=== PATIENT | male | born 1960 | race Caucasian/White ===

== ENCOUNTER 2016-12-02 09:21 | Emergency (ER) | payer BC ==
[~2016-12-02] VITALS: Ht 167.6 cm; Wt 68.7 kg
[~2016-12-02 09:21] MED LIST: OMEP40CA PO; ROSU5TAB PO
[2016-12-02 09:25] VITALS: TEMP 36.6; Ht 167.6 cm; Wt 68.7 kg
--- NOTE | 2016-12-02 09:54 | EMERGENCY ROOM VISIT NOTE ---
History Report prepared by Swapna: Alma Masters Under the Supervision of: Dr. Demetrius Joya D.O. First contact with patient: 09:38 Chief Complaint: CHEST PAIN Stated Complaint: HIGH BLOOD PRESSURE MODERATE CHEST PAIN Nursing Triage Summary: PT HAD SURGERY ON Nov FOR HERNIA REPAIR, SINCE THEN HAS HAD ISSUES WITH HTN , POST SURGERY F/U ON SATURDAY PT WAS PLACED ON LISINOPRIL BY PCP. PTS BP HAS BEEN RUNNING 170-180'S SYSTOLIC. LAST EVENING PT DEVELOPED CP, WAS DIAPHORETIC, PAIN RADIATING INTO LEFT ARM WITH NUMBNESS. PT VERBALIZES CP IS INTERMITTENT, AT PRESENT, CP IS 0/10. PTS FATHER FROM [place] AT 73 YEARS OLD. History of Present Illness The patient is a 56 year old male who presents to the Emergency Room with complaints of intermittent left sided chest pain that began last evening. He currently rates his discomfort as a 4/10 in severity. The patient states that the pain began last evening, and states that it worsens with movement and when he thinks about it. He additionally notes that for the last several days he has had an elevated blood pressure of 180/112, but normally runs between 130-140 /80-90. The patient states that his pain is radiating into the right side of his neck now and additionally notes palpitations. He states that three weeks ago he had a left sided hernia repair. He states that he was placed on Lisinopril three days ago for his hypertension. The patient states that prior to his surgery he had a cold for about one month. He notes a family history of heart disease, noting that his father passed at age 73, but denies any family history before age 56. The patient notes that he is an occasional alcohol drinker and caffeine drinker. He denies any tobacco use or recreational drug use. The patient notes that with his profession he uses his upper body often. Source of History: patient Onset: last evening Position: chest (left) Symptom Intensity: 4/10 Timing: intermittent Modifying Factors (Worsening): movement, other (thinking about it) Associated Symptoms: + neck pain Note: Associated Symptoms: elevated blood pressure, palpitations. Review of Systems See above for pertinent positives & negatives. A total of 10 systems reviewed and were otherwise negative. Past Medical & Surgical Medical Problems: (1) Hypertension (2) Inguinal hernia Surgical Problems: (1) S/P inguinal hernia repair Family History Diabetes mellitus FH: cancer Heart disease Hypertension Lung disease Social History Smoking Status: Never Smoker Smokeless Tobacco Use: No Alcohol Use: occasionally Drug Use: none Marital Status: Housing Status: lives with significant other Occupation Status: employed Current/Historical Medications Scheduled Acetaminophen (Acetaminophen), 1-2 TAB PO Q8H Multivitamin (Multivitamin), 1 TAB PO DAILY Rosuvastatin Calcium (Crestor), 5 MG PO LUNCH Allergies Coded Allergies: No Known Allergies (Verified , 12/02/16) Physical Exam Vital Signs Date Time Temp Pulse Resp B/P Pulse Ox O2 Delivery O2 Flow Rate FiO2 12/02/16 10:59 61 18 154/99 99 Room Air 12/02/16 10:09 98 Room Air 12/02/16 10:09 65 18 177/111 99 Room Air 12/02/16 09:25 36.6 74 18 172/102 97 Room Air Physical Exam GENERAL: Patient is well appearing and in no acute distress. HEENT: No acute trauma, normocephalic atraumatic, mucous membranes moist, no nasal congestion, no scleral icterus. NECK: No stridor, no adenopathy, no meningismus, trachea is midline. LUNGS: No dyspnea. Clear to auscultation and equal bilaterally. No wheeze, no rhonchi. HEART: Regular rate and rhythm. No murmurs, rubs, gallops appreciated. ABDOMEN: Soft, nontender, bowel sounds positive, no masses appreciated, no peritonitis. BACK: No midline tenderness, no CVA tenderness EXTREMITIES: Normal motion all extremities, no cyanosis, no edema. NEUROLOGIC: Alert and oriented, no acute motor or sensory deficits, no focal weakness, cranial nerves grossly intact. SKIN: No rash, no jaundice, no diaphoresis. Medical Decision & Procedures ER Provider Diagnostic Interpretation: X ray results and stated below per my interpretation and radiologist interpretation. Other radiology results and stated below per my review and radiologist interpretation: CHEST ONE VIEW PORTABLE HISTORY: Atypical CHEST PAIN COMPARISON: None. FINDINGS: The lungs are clear. Cardiac silhouette is normal in size. No pleural effusions. No pneumothorax. IMPRESSION: No acute process. Electronically signed by: Nathaniel Martin M.D. 12/02/2016 10:09 AM Dictated Date/Time: 12/02/2016 10:08 AM Laboratory Results 12/02/16 09:43 Red Blood Count 5.27, Mean Corpuscular Volume 79.7, Mean Corpuscular Hemoglobin 27.5, Mean Corpuscular Hemoglobin Concent 34.5, Mean Platelet Volume 10.4, Neutrophils (%) (Auto) 74.8, Lymphocytes (%) (Auto) 14.7, Monocytes (%) (Auto) 8.1, Eosinophils (%) (Auto) 2.0, Basophils (%) (Auto) 0.1, Neutrophils # (Auto) 6.67, Lymphocytes # (Auto) 1.31, Monocytes # (Auto) 0.72, Eosinophils # (Auto) 0.18, Basophils # (Auto) 0.01 12/02/16 09:43 Test 12/02/16 09:43 White Blood Count 8.92 K/uL (4.8-10.8) Red Blood Count 5.27 M/uL (4.7-6.1) Hemoglobin 14.5 g/dL (14.0-18.0) Hematocrit 42.0 % (42-52) Mean Corpuscular Volume 79.7 fL (80-100) Mean Corpuscular Hemoglobin 27.5 pg (25-34) Mean Corpuscular Hemoglobin Concent 34.5 g/dl (32-36) Platelet Count 214 K/uL (130-400) Mean Platelet Volume 10.4 fL (7.4-10.4) Neutrophils (%) (Auto) 74.8 % Lymphocytes (%) (Auto) 14.7 % Monocytes (%) (Auto) 8.1 % Eosinophils (%) (Auto) 2.0 % Basophils (%) (Auto) 0.1 % Neutrophils # (Auto) 6.67 K/uL (1.4-6.5) Lymphocytes # (Auto) 1.31 K/uL (1.2-3.4) Monocytes # (Auto) 0.72 K/uL (0.11-0.59) Eosinophils # (Auto) 0.18 K/uL (0-0.5) Basophils # (Auto) 0.01 K/uL (0-0.2) RDW Standard Deviation 38.4 fL (36.4-46.3) RDW Coefficient of Variation 13.3 % (11.5-14.5) Immature Granulocyte % (Auto) 0.3 % Immature Granulocyte # (Auto) 0.03 K/uL (0.00-0.02) Anion Gap 10.0 mmol/L (3-11) Est Creatinine Clear Calc Drug Dose 68.4 ml/min Estimated GFR () 87.1 Estimated GFR (Non- 75.2 BUN/Creatinine Ratio 14.9 (10-20) Calcium Level 8.9 mg/dl (8.5-10.1) Total Bilirubin 0.5 mg/dl (0.2-1) Direct Bilirubin < 0.1 mg/dl (0-0.2) Aspartate Amino Transf (AST/SGOT) 18 U/L (15-37) Alanine Aminotransferase (ALT/SGPT) 34 U/L (12-78) Alkaline Phosphatase 112 U/L (45-117) Troponin I < 0.015 ng/ml (0-0.045) Total Protein 7.6 gm/dl (6.4-8.2) Albumin 3.8 gm/dl (3.4-5.0) Lipase 108 U/L (73-393) Thyroid Stimulating Hormone (TSH) 1.440 uIu/ml (0.300-4.500) Free Thyroxine 1.06 ng/dl (0.80-1.60) Laboratory results as reviewed by me. Medications Administered Medications (Trade) Dose Ordered Sig/Josue Route Start Time Stop Time Status Last Admin Dose Admin Lisinopril (Zestril Tab) 10 mg NOW STAT PO 12/02/16 10:38 12/02/16 10:39 DC 12/02/16 10:42 10 MG ECG Indication: chest pain Rate (beats per minute): 66 Rhythm: normal sinus Findings: other (normal axis, normal intervals) Comparison ECG Date: no prior available ED Course 0939: The patient was evaluated in room A3. A complete history and physical exam was performed. 1038: Ordered Lisinopril 10 mg PO. 1057: I reevaluated the patient and he is resting comfortably. I discussed the exam findings with him and I discussed the treatment plan. He verbalized complete understanding and agreement. He is ready to go home. Medical Decision Differential diagnosis: Etiologies such as cardiac ischemia, aortic dissection, pulmonary embolism, pneumonia, pneumothorax, musculoskeletal, infections, pericarditis, myocarditis , esophageal rupture, gastrointestinal, as well as others were entertained. The past medical history of recently diagnosed hypertension, was started on 2.5 mg of lisinopril, he is been checking his blood pressure at home and felt that his blood pressure was actually increase discontinue the lisinopril after 3 days. He presents with a 24-hour history of intermittent chest pain that feels like electric shocks, it gets better when he moves around bed, there is no radiation. He has a family history of cardiac disease, his father in the 70s from a heart attack however there is no significant cardiac disease prior to age 56, he is a nonsmoker, occasionally drinks alcohol but every day, denies any illicit drug use. 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 The patient has a heart score of 2, he only has 2 risk factors for cardiac disease, I am not suspicious of the clinical history of this chest pain being cardiac, his EKG is normal, he is age 56 which gives him 1. his EKG is normal, his troponins are normal. He is also concerned about his elevated blood pressure it is an 170s 180s, I feel that there could be an anxiety component related to this and as he is on a very low-dose of lisinopril I have advised him to increase lisinopril to 10 mg daily and to follow-up with his primary care doctor. Impression Primary Impression: Non-cardiac chest pain Additional Impression: Hypertension Scribe Attestation The scribe's documentation has been prepared under my direction and personally reviewed by me in its entirety. I confirm that the note above accurately reflects all work, treatment, procedures, and medical decision making performed by me. Departure Information Dispostion Home / Self-Care Prescriptions Lisinopril (PRINIVIL) 10 Mg Tab 10 MG PO DAILY, #30 TAB Prov: Demetrius Joya D.O. 12/02/16 Acetaminophen (ACETAMINOPHEN) 500 Mg Tab 1-2 TAB PO Q8H for 15 Days, TAB Prov: Demetrius Joya D.O. 12/02/16 Referrals Jayant Houston D.O. (PCP) Follow-up with Dr. Houston in 1-2 weeks for medication adjustment. Forms HOME CARE DOCUMENTATION FORM, IMPORTANT VISIT INFORMATION Patient Instructions ED Chest Pain Atypical Unkn Cause, [facility] Additional Instructions Return for severe chest pain like an elephant sitting on her chest, inability to catch her breath, or passing out. Problem Qualifiers
[2016-12-02 10:03] LABS: BASO % 0.1 %; BASO ABS # 0.01 K/uL (0-0.2); COMPLETE YES; IG% 0.3 %; LYMPH % 14.7 %; LYMPH ABS # 1.31 K/uL (1.2-3.4); MEAN CELL VOLUME 79.7 fL (80-100); MEAN CORPUSCULAR HEMOGLOBIN 27.5 pg (25-34); MEAN CORPUSCULAR HGB CONC 34.5 g/dl (32-36); MEAN PLATELET VOLUME 10.4 fL (7.4-10.4); MONO % 8.1 %; NEUT % 74.8 %; PLATELET COUNT 214 K/uL (130-400); RED BLOOD COUNT 5.27 M/uL (4.7-6.1); WHITE BLOOD COUNT 8.92 K/uL (4.8-10.8)
[2016-12-02 10:09] VITALS: O2SAT 98
--- NOTE | 2016-12-02 10:11 | DIAGNOSTIC IMAGING REPORT ---
CHEST ONE VIEW PORTABLE HISTORY: Atypical CHEST PAIN COMPARISON: None. FINDINGS: The lungs are clear. Cardiac silhouette is normal in size. No pleural effusions. No pneumothorax. IMPRESSION: No acute process. Electronically signed by: Nathaniel Martin M.D. 12/02/2016 10:09 AM Dictated Date/Time: 12/02/2016 10:08 AM
[2016-12-02 10:27] LABS: ALT/SGPT 34 U/L (12-78); BLOOD UREA NITROGEN 16 mg/dl (7-18); BUN/CREATININE RATIO 14.9 (10-20); CALCIUM 8.9 mg/dl (8.5-10.1); CARBON DIOXIDE 27 mmol/L (21-32); CHLORIDE 106 mmol/L (98-107); GLUCOSE 99 mg/dl (70-99); POTASSIUM 3.5 mmol/L (3.5-5.1); SODIUM 143 mmol/L (136-145)
[2016-12-02] MEDS ORDERED: MULT-506 PO (10:27)
[2016-12-02 10:38] LABS: ALKALINE PHOSPHATASE 112 U/L (45-117); AST/SGOT 18 U/L (15-37)
[2016-12-02] MEDS ORDERED: LISINOPRIL 5 MG TAB PO STA (10:38)
[2016-12-02] MEDS ORDERED: ACET500T57 PO (10:42)
[2016-12-02] MEDS ORDERED: LISI10TA PO (11:22)
[2016-12-02 11:27] VITALS: BP 168/106; PULSE 65; O2SAT 98
[2016-12-03] MEDS ORDERED: LISINOPRIL 10 MG TAB PO SCH (09:00)
== END 2016-12-02 11:27 | disposition home or self-care (01) ==
LOC: C.EDB 09:23 → C.EDA 11:27
DX: R07.89 Other chest pain (principal); I10 Essential (primary) hypertension; Z83.3 Family history of diabetes mellitus; Z82.49 Family history of ischemic heart disease and other diseases of the circulatory system

== ENCOUNTER 2019-02-01 01:06 | Observation (INO) ==
[2019-02-01] MEDS ORDERED: ASPIRIN 81 MG CHEW PO STA (02:05)
[2019-02-01 02:47] LABS: Basophils # (auto) 0.01 K/uL (0-0.2); Basophils % (auto) 0.1 %; Eosinophils # (auto) 0.19 K/uL (0-0.5); Eosinophils % (auto) 2.6 %; Hematocrit (blood only) 40.6 % (42-52); Hemoglobin 13.8 g/dL (14.0-18.0); Immature Granulocytes # (auto) 0.01 K/uL (0.00-0.02); Immature Granulocytes % (auto) 0.1 %; Lymphocytes # (auto) 1.05 K/uL (1.2-3.4); Lymphocytes % (auto) 14.3 %; Mean Corpuscular Volume 82.2 fL (80-100); Mean Platelet Volume 10.2 fL (7.4-10.4); Monocytes # (auto) 0.76 K/uL (0.11-0.59); Monocytes % (auto) 10.3 %; Neutrophils # (auto) 5.33 K/uL (1.4-6.5); Neutrophils % (auto) 72.6 %; Platelet Count 148 K/uL (130-400); RDW Coefficient of Variation 13.3 % (11.5-14.5); RDW Standard Deviation 40.4 fL (36.4-46.3); Red Blood Count 4.94 M/uL (4.7-6.1); White Blood Count 7.35 K/uL (4.8-10.8)
[2019-02-01 03:12] LABS: Alanine Aminotransferase 52 U/L (12-78); Albumin Level 3.2 gm/dl (3.4-5.0); Aspartate Aminotransferase 32 U/L (15-37); BUN Creatinine Ratio 23.4 (10-20); Bilirubin Direct < 0.1 mg/dl (0-0.2); Blood Urea Nitrogen 25 mg/dl (7-18); Calcium 8.4 mg/dl (8.5-10.1); Carbon Dioxide 28 mmol/L (21-32); Chloride 108 mmol/L (98-107); Est GFR (African American) 90.9; Est GFR (Non-African American) 78.4; Glucose 102 mg/dl (70-99); Potassium 3.8 mmol/L (3.5-5.1); Sodium 139 mmol/L (136-145)
[2019-02-01 03:17] LABS: Alkaline Phosphatase 102 U/L (45-117); Bilirubin,Total 0.3 mg/dl (0.2-1); Total Protein 6.9 gm/dl (6.4-8.2); Troponin I < 0.015 ng/ml (0-0.045)
--- NOTE | 2019-02-01 03:57 | History & Physical Report ---
Date of Service February 01, 2019 Assessment & Plan (1) Chest pain: (2) High cholesterol: (3) Hypertension: (4) GERD (gastroesophageal reflux disease): History of Present Illness Chief Complaint: CP Primary Care Provider: Jayant Houston, DO 58-year-old male with past medical history of hypertension, hyperlipidemia, gastroesophageal reflux disease, who comes in complaining of substernal chest pain radiating to his back that started about 2 days ago. He had a recent EGD and has had a sore throat since then. Workup in the ER so far was negative we will place him under observation have him seen by cardiology and get a 2D echo. Patient will be observation status likely be her less than 2 midnights. He does have a family history of premature acute myocardial infarctions. Assessment and Plan Substernal chest pain Hypertension Hyperlipidemia GERD Placed under observation, serial troponins, trans-thoracic echo, continue outpatient medications, monitor daily labs, cardiac evaluation. Symptoms to me sound like reflux more so than cardiac ROS-No Headache, No Visual Changes, No Fever, No Chills, No Neck Pain or Stiffness, positive chest Pain radiating into his back, substernal in nature, 8/10 in severity, No Palpitations, No SOB, No BREWSTER, No Cough, No Sputum, No Wheezing, No Abdominal Pain, No Diarrhea, No Hematemesis, No Hemoptysis, No Unexpected Weight Loss, No Flank pain, No Melena, No Hematochezia, No Frequency, No Urgency, No Burning, No Hematuria, No Rashes, No Diaphoresis. Appetite is Normal Physical Exam Gen-AAO x 3, NAD, Afebrile, fit Head-NCAT, EOMI, PERRLA, Anicteric Sclera, No Posterior Pharyngeal Erythema Neck-Supple, No JVD, No Thyromegaly, No Masses, No LAD, No Bruits Lungs-Clear to Auscultation Bilaterally, No Rales, No Rhonchi, No Wheezing, No Crepitus Chest-No S4, +S1, +S2, No S3, No Murmurs, No Rubs, No Gallops, No Ectopy Abdomen-Soft, Bowel Sounds Present, Non Tender, Non Distended, No Hepatomegaly, No Splenomegaly, No Palpable Masses, No Rebound, No Rigidity, No Guarding Musculoskeletal-Full Range of Motion Bilaterally, No CVAT Extremities-No Cyanosis, No Clubbing, No Edema Nuero-Cranial Nerves II-XII grossly intact, Motor WNL, DTRs WNL, Strength WNL, No Focal Psych-Normal Mood PMH hypertension, hyperlipidemia, gastroesophageal reflux disease PSH hernia repair and ear surgery FH family history of premature coronary disease, mother of breast cancer, father of an acute VA, he has a son and daughter one has Crohn's disease the other is healthy [employer] employee, , no tobacco, drugs, alcohol. Meds reviewed and Reconciled Labs Reviewed Allergies Allergy/AdvReac Type Severity Reaction Status Date / Time No Known Allergies Allergy Verified 02/01/19 02:07 Home Medications Home Medications Medication Instructions Recorded Confirmed Type lisinopril 10 mg PO DAILY 02/01/19 02/01/19 History omeprazole 40 mg PO DAILY 02/01/19 02/01/19 History ranitidine HCl 150 mg PO DAILY 02/01/19 02/01/19 History rosuvastatin [Crestor] 5 mg PO DAILY 02/01/19 02/01/19 History Past Med/Surg History Medical History High cholesterol Hypertension (Chronic) Surgical History History of hernia surgery History of ear surgery Family History Other Heart disease Social History Feels Safe at Home: Yes Smoking Status: Never smoker Physical Exam Vital Signs (Past 24 Hours): Last Vital Signs Temp 36.7 C 02/01/19 01:09 Pulse 60 02/01/19 03:31 Resp 15 02/01/19 03:31 BP 151/98 H 02/01/19 03:30 Pulse Ox 98 02/01/19 03:31 Results & Data Laboratory Results Allergies No Known Allergies Allergy (Verified 02/01/19 02:07) Height/Weight/Isolation Height 5 ft 4 in Weight 70.6 kg CBC 02/01/19 02/01/19 02:25 02:25 WBC 7.35 RBC 4.94 Hgb 13.8 L Hct 40.6 L MCV 82.2 MCH 27.9 MCHC 34.0 RDW Std Deviation 40.4 RDW Coeff of Denise 13.3 Plt Count 148 MPV 10.2 Immature Gran % (Auto) 0.1 Neut % (Auto) 72.6 Lymph % (Auto) 14.3 [place] % (Auto) 10.3 Eos % (Auto) 2.6 Baso % (Auto) 0.1 Immature Gran # (Auto) 0.01 Neut # (Auto) 5.33 Lymph # (Auto) 1.05 L [place] # (Auto) 0.76 H Eos # (Auto) 0.19 Baso # (Auto) 0.01 Sodium 139 Potassium 3.8 Chloride 108 H Carbon Dioxide 28 Anion Gap 3.0 BUN 25 H Creatinine 1.05 Est Cr Clr Drug Dosing 65.0 Est GFR ( Amer) 90.9 Est GFR (Non-Af Amer) 78.4 BUN/Creatinine Ratio 23.4 H Glucose 102 H Calcium 8.4 L Total Bilirubin 0.3 Direct Bilirubin < 0.1 AST 32 ALT 52 Alkaline Phosphatase 102 Troponin I < 0.015 Total Protein 6.9 Albumin 3.2 L Lipase 108 Chemistry 02/01/19 02:25 Sodium 139 Potassium 3.8 Chloride 108 H Carbon Dioxide 28 Anion Gap 3.0 BUN 25 H Creatinine 1.05 Glucose 102 H
[2019-02-01] MEDS ORDERED: ONDANSETRON INJ 2 MG/ML 2 ML VIAL IV PRN (04:35)
[2019-02-01] MEDS ORDERED: SODIUM CHLORIDE 0.9% 1000ML 1,000 ML IV SCH (04:35)
[2019-02-01] MEDS ORDERED: ACETAMINOPHEN 325 MG TAB PO PRN (04:35)
[2019-02-01] MEDS ORDERED: ALUMINUM/MAGNESIUM SUSP 30 ML UDC PO PRN (04:35)
[2019-02-01] MEDS ORDERED: POLYETHYLENE (MIRALAX) 17 GM PACK PO PRN (04:35)
[2019-02-01] MEDS ORDERED: NITROGLYCERIN SL 0.4 MG/TAB TAB SL PRN (04:35)
[2019-02-01 06:44] LABS: Hematocrit (blood only) 39.9 % (42-52); Hemoglobin 13.4 g/dL (14.0-18.0); Mean Corpuscular Hgb Conc 33.6 g/dL (32-36); Mean Corpuscular Volume 81.4 fL (80-100); Mean Platelet Volume 10.5 fL (7.4-10.4); Platelet Count 152 K/uL (130-400); RDW Coefficient of Variation 13.3 % (11.5-14.5); RDW Standard Deviation 39.9 fL (36.4-46.3); White Blood Count 7.67 K/uL (4.8-10.8)
[2019-02-01 07:12] LABS: Blood Urea Nitrogen 24 mg/dl (7-18); Calcium 8.8 mg/dl (8.5-10.1); Carbon Dioxide 30 mmol/L (21-32); Chloride 109 mmol/L (98-107); Creatinine Clr Calc Pharmacy 65.6 ml/min; Est GFR (African American) 91.9; Est GFR (Non-African American) 79.3; Glucose 99 mg/dl (70-99); Sodium 142 mmol/L (136-145)
[2019-02-01 07:17] LABS: Troponin I < 0.015 ng/ml (0-0.045)
[2019-02-01 07:17] LABS: Prothrombin Time 10.3 Seconds (9.0-12.0)
--- NOTE | 2019-02-01 07:21 | XRay Report ---
XR chest 1V portable HISTORY: 58 years-old Male CP acute atypical chest pain COMPARISON: Chest radiograph 12/02/2016 TECHNIQUE: Portable AP view the chest FINDINGS: Cardiomediastinal and hilar silhouettes are within normal limits. There is no pneumothorax, pleural e ffusion, focal airspace consolidation or overt pulmonary edema. Degenerative changes of the shoulders and spine. IMPRESSION: No acute process. The above report was generated using voice recognition software. It may contain grammatical, syntax o r spelling errors. Electronically signed by: Nino Diane M.D. 02/01/2019 7:20 AM
--- NOTE | 2019-02-01 08:44 | Emergency Department Note ---
Entered by Moni Kingston acting as a scribe for Larry Benitez MD ED Provider Note Name: Khris Larry Age: 58 M Arrives Via: Private vehicle Informant: The patient CC: Chest pain HPI: A 58 year old male arrives for evaluation of episodic chest pain starting 12 hours ago. The patient reports that he is experiencing chest pain that radiates to his back. He describes this pain as a pressure. He states that these episodes last for 30 to 45 minutes. He adds that he has had 3 of these episodes today. He states that he had a stress test done a while ago. 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 He states that he has been experiencing these chest pains for the past few weeks but that they worsened today. He denies headache and fever. ROS: See above HPI for pertinent positives & negatives. A total of 10 systems reviewed and were otherwise negative. Past Medical History: HTN, high cholesterol. Past Surgical History: Hernia, ear. Family History: Heart disease Social History: Feels safe at home. Never a smoker. Home Medications: Crestor 5 mg PO, Multivitamin 1 tab PO. Allergies No known allergies. Physical: Vitals: BP: 156/119, Pulse: 61, Resp: 16, Temp: 98.4F, O2 Sat: 99, Delivery: Room Air Exam: GENERAL: Patient is well appearing and in no acute distress. EYES: No scleral icterus, unremarkable pupils. ENT: Mucous membranes moist, no nasal congestion. NECK: No masses appreciated, no meningismus, trachea is midline. RESPIRATORY: No dyspnea. Clear to auscultation and equal bilaterally. No wheeze, no rhonchi. CARDIOVASCULAR: Regular rate and rhythm. No murmurs, rubs, gallops appreciated. GASTROINTESTINAL: Abdomen soft, non-tender, no peritonitis. Bowel sounds positive. No masses appreciated. BACK: No midline tenderness, no CVA tenderness EXTREMITIES: Normal motion all extremities, no cyanosis, no edema. NEUROLOGIC: Alert and oriented, no acute motor or sensory deficits, no focal weakness, cranial nerves grossly intact. SKIN: No rash, no jaundice, no diaphoresis. ED Course: 0208: Prior Medical Record, Triage/Nursing Notes, Medications, Allergies reviewed by Me. Past medical records reviewed. The patient was evaluated in room A11A, and a complete history and physical examination were performed. 0320: I reevaluated the patient at this time who is not currently experiencing chest pain. We discussed potential admission for the patient. I paged Dr. Rhys Garg hospitalist at this time. 0339: I reviewed the patient's case with Dr. Joiner - Britany hospitalist who will come evaluate the patient at bedside. He will evaluate the patient for further management. Vital Signs: reviewed and remarkable for wnl Labs: Reviewed and remarkable for normal trop Interventions: Asa 324mg PO Imaging: X ray results are stated below per my interpretation: Chest: 1 view: No infiltrate, no effusion, normal cardiac border. EKG: Per My interpretation: no previous for comparison. Sinus michela 58 bpm. No ectopy no ischemia. QTC 418 Consults: Dr Joiner Blood pressure: Normal. No Referral necessary Disposition: Hospitalization Differentials: Etiologies such as shingles, musculoskeletal pain, pericarditis, myocarditis, cardiac ischemia, pericardial tamponade, pneumonia, pneumothorax, pleural effusion, hemothorax, pleurisy, aortic pathology, pulmonary embolism, intra-abdominal process, as well as others were considered. Medical Decision Makin yr old male with worsening episodic substernal chest pressure radiating to back. Resolved on arrival. Notes some sore throat post endoscopy. Abdomen soft benign. He has multiple cardiac risk factors. He has initial negative Trop with normal EKG though if this is Unstable angina this could still be ACS. I do not feel that heparin necessary at this time. After discussing pros/cons hospitalization patient wishes hospitalist alyse. Will be brought in to [facility] service for cardiac rule out. Symptoms not consistent with PE, disseciton. No evidence infection at this time. Impression: Substernal Chest Pain Larry Benitez MD The scribe's documentation has been prepared under my direction and personally reviewed by me in its entirety. I confirm that the note above accurately reflects all work, treatment, procedures, and medical decision making performed by me. 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 Beliefs That Will Affect Care: None Current Living Situation: Spouse Other Information That Helps Us Care for You: No Feels Safe at Home: Yes Safety Concerns: Feels Safe At This Time Smoking Status: Never smoker Hx Alcohol Use: Yes Hx Substance Use: No Results & Data Vital Signs Vital Signs - 24 hr 02/01/19 01:09 02/01/19 01:32 02/01/19 01:35 Temperature 36.7 C Temperature Source Oral Sepsis Recent Fever Within 48 Hours No Sepsis Action Taken by Nursing No Action Required Pulse Rate 68 63 61 Pulse Rate [Right Finger] Pulse Rate from SpO2 Sensor 64 60 Pulse Rhythm Regular Pulse Rhythm [Right Finger] Pulse Strength Normal Pulse Strength [Right Finger] Respiratory Rate 18 18 10 L Respiratory Effort / Characteristics Non-Labored Spontaneous Respiratory Depth Normal Respiratory Pattern Blood Pressure 164/107 H 145/96 H Blood Pressure [Right Arm] Blood Pressure Mean 126 112 Blood Pressure Mean [Right Arm] Blood Pressure Position Sitting Blood Pressure Position [Right Arm] Pulse Oximetry 99 97 97 Oxygen Delivery Method Room Air 02/01/19 02:00 02/01/19 02:01 02/01/19 02:30 Temperature Temperature Source Sepsis Recent Fever Within 48 Hours Sepsis Action Taken by Nursing Pulse Rate 63 64 59 L Pulse Rate [Right Finger] Pulse Rate from SpO2 Sensor 64 60 Pulse Rhythm Pulse Rhythm [Right Finger] Pulse Strength Pulse Strength [Right Finger] Respiratory Rate 24 21 14 Respiratory Effort / Characteristics Respiratory Depth Respiratory Pattern Blood Pressure 153/97 H 134/103 H Blood Pressure [Right Arm] Blood Pressure Mean 115 113 Blood Pressure Mean [Right Arm] Blood Pressure Position Blood Pressure Position [Right Arm] Pulse Oximetry 98 94 Oxygen Delivery Method 02/01/19 02:31 02/01/19 03:00 02/01/19 03:01 Temperature Temperature Source Sepsis Recent Fever Within 48 Hours Sepsis Action Taken by Nursing Pulse Rate 61 59 L 57 L Pulse Rate [Right Finger] Pulse Rate from SpO2 Sensor 67 60 58 L Pulse Rhythm Pulse Rhythm [Right Finger] Pulse Strength Pulse Strength [Right Finger] Respiratory Rate 19 16 13 Respiratory Effort / Characteristics Respiratory Depth Respiratory Pattern Blood Pressure 144/98 H Blood Pressure [Right Arm] Blood Pressure Mean 113 Blood Pressure Mean [Right Arm] Blood Pressure Position Blood Pressure Position [Right Arm] Pulse Oximetry 98 96 97 Oxygen Delivery Method 02/01/19 03:30 02/01/19 03:31 02/01/19 04:00 Temperature Temperature Source Sepsis Recent Fever Within 48 Hours Sepsis Action Taken by Nursing Pulse Rate 60 60 66 Pulse Rate [Right Finger] Pulse Rate from SpO2 Sensor 61 60 64 Pulse Rhythm Pulse Rhythm [Right Finger] Pulse Strength Pulse Strength [Right Finger] Respiratory Rate 16 15 18 Respiratory Effort / Characteristics Respiratory Depth Respiratory Pattern Blood Pressure 151/98 H 156/119 H Blood Pressure [Right Arm] Blood Pressure Mean 115 131 Blood Pressure Mean [Right Arm] Blood Pressure Position Blood Pressure Position [Right Arm] Pulse Oximetry 98 98 98 Oxygen Delivery Method 02/01/19 04:01 02/01/19 04:30 02/01/19 04:46 Temperature 36.9 C Temperature Source Oral Sepsis Recent Fever Within 48 Hours Sepsis Action Taken by Nursing Pulse Rate 64 61 Pulse Rate [Right Finger] 62 Pulse Rate from SpO2 Sensor 62 Pulse Rhythm Pulse Rhythm [Right Finger] Regular Pulse Strength Pulse Strength [Right Finger] Normal Respiratory Rate 13 16 Respiratory Effort / Characteristics Non-Labored Spontaneous Respiratory Depth Normal Respiratory Pattern Regular Blood Pressure Blood Pressure [Right Arm] Blood Pressure Mean Blood Pressure Mean [Right Arm] Blood Pressure Position Blood Pressure Position [Right Arm] Pulse Oximetry 99 99 Oxygen Delivery Method Room Air 02/01/19 08:15 Temperature 36.5 C Temperature Source Oral Sepsis Recent Fever Within 48 Hours Sepsis Action Taken by Nursing Pulse Rate Pulse Rate [Right Finger] 63 Pulse Rate from SpO2 Sensor Pulse Rhythm Pulse Rhythm [Right Finger] Pulse Strength Pulse Strength [Right Finger] Respiratory Rate 17 Respiratory Effort / Characteristics Respiratory Depth Respiratory Pattern Blood Pressure Blood Pressure [Right Arm] 128/87 Blood Pressure Mean Blood Pressure Mean [Right Arm] 100 Blood Pressure Position Blood Pressure Position [Right Arm] Lying Pulse Oximetry 96 Oxygen Delivery Method Room Air Home Medications Current Medication List: was personally reviewed by me Laboratory Data Attestation: I reviewed the patient's lab results. Result diagrams: 02/01/19 05:51 02/01/19 05:51 Lab Results 02/01/19 02/01/19 02/01/19 Range/Units 02:25 02:25 02:25 WBC 7.35 (4.8-10.8) K/uL RBC 4.94 (4.7-6.1) M/uL Hgb 13.8 L (14.0-18.0) g/dL Hct 40.6 L (42-52) % MCV 82.2 (80-100) fL MCH 27.9 (25-34) pg MCHC 34.0 (32-36) g/dL RDW Std Deviation 40.4 (36.4-46.3) fL RDW Coeff of Denise 13.3 (11.5-14.5) % Plt Count 148 (130-400) K/uL MPV 10.2 (7.4-10.4) fL Immature Gran % (Auto) 0.1 % Neut % (Auto) 72.6 % Lymph % (Auto) 14.3 % [place] % (Auto) 10.3 % Eos % (Auto) 2.6 % Baso % (Auto) 0.1 % Immature Gran # (Auto) 0.01 (0.00-0.02) K/uL Neut # (Auto) 5.33 (1.4-6.5) K/uL Lymph # (Auto) 1.05 L (1.2-3.4) K/uL [place] # (Auto) 0.76 H (0.11-0.59) K/uL Eos # (Auto) 0.19 (0-0.5) K/uL Baso # (Auto) 0.01 (0-0.2) K/uL PT 10.3 (9.0-12.0) Seconds INR 1.0 (0.9-1.1) Sodium 139 (136-145) mmol/L Potassium 3.8 (3.5-5.1) mmol/L Chloride 108 H (98-107) mmol/L Carbon Dioxide 28 (21-32) mmol/L Anion Gap 3.0 (3-11) BUN 25 H (7-18) mg/dl Creatinine 1.05 (0.6-1.4) mg/dl Est Cr Clr Drug Dosing 65.0 ml/min Est GFR ( Amer) 90.9 Est GFR (Non-Af Amer) 78.4 BUN/Creatinine Ratio 23.4 H (10-20) Glucose 102 H (70-99) mg/dl Calcium 8.4 L (8.5-10.1) mg/dl Total Bilirubin 0.3 (0.2-1) mg/dl Direct Bilirubin < 0.1 (0-0.2) mg/dl AST 32 (15-37) U/L ALT 52 (12-78) U/L Alkaline Phosphatase 102 (45-117) U/L Troponin I < 0.015 (0-0.045) ng/ml Total Protein 6.9 (6.4-8.2) gm/dl Albumin 3.2 L (3.4-5.0) gm/dl Lipase 108 (73-393) U/L 02/01/19 02/01/19 Range/Units 05:51 05:51 WBC 7.67 (4.8-10.8) K/uL RBC 4.90 (4.7-6.1) M/uL Hgb 13.4 L (14.0-18.0) g/dL Hct 39.9 L (42-52) % MCV 81.4 (80-100) fL MCH 27.3 (25-34) pg MCHC 33.6 (32-36) g/dL RDW Std Deviation 39.9 (36.4-46.3) fL RDW Coeff of Denise 13.3 (11.5-14.5) % Plt Count 152 (130-400) K/uL MPV 10.5 H (7.4-10.4) fL Immature Gran % (Auto) % Neut % (Auto) % Lymph % (Auto) % [place] % (Auto) % Eos % (Auto) % Baso % (Auto) % Immature Gran # (Auto) (0.00-0.02) K/uL Neut # (Auto) (1.4-6.5) K/uL Lymph # (Auto) (1.2-3.4) K/uL [place] # (Auto) (0.11-0.59) K/uL Eos # (Auto) (0-0.5) K/uL Baso # (Auto) (0-0.2) K/uL PT (9.0-12.0) Seconds INR (0.9-1.1) Sodium 142 (136-145) mmol/L Potassium 4.0 (3.5-5.1) mmol/L Chloride 109 H (98-107) mmol/L Carbon Dioxide 30 (21-32) mmol/L Anion Gap 3.0 (3-11) BUN 24 H (7-18) mg/dl Creatinine 1.04 (0.6-1.4) mg/dl Est Cr Clr Drug Dosing 65.6 ml/min Est GFR ( Amer) 91.9 Est GFR (Non-Af Amer) 79.3 BUN/Creatinine Ratio 23.0 H (10-20) Glucose 99 (70-99) mg/dl Calcium 8.8 (8.5-10.1) mg/dl Total Bilirubin (0.2-1) mg/dl Direct Bilirubin (0-0.2) mg/dl AST (15-37) U/L ALT (12-78) U/L Alkaline Phosphatase (45-117) U/L Troponin I < 0.015 (0-0.045) ng/ml Total Protein (6.4-8.2) gm/dl Albumin (3.4-5.0) gm/dl Lipase (73-393) U/L Administered Medications Sodium Chloride (Nss 1000ml) 1,000 mls @ 85 mls/hr IV .[id number] NATHALIA Stop: 03/03/19 04:34 Last Admin: 02/01/19 05:41 Dose: Not Given Documented by: [id number] Discontinued Medications Aspirin (Aspirin Chew) 324 mg PO NOW STA Stop: 02/01/19 02:06 Last Admin: 02/01/19 02:11 Dose: 324 mg Documented by: [id number] Imaging Data Attestation: I personally reviewed and interpreted this imaging study as follows: ECG Data Attestation: I personally reviewed and interpreted this ECG as follows: Blood Pressure Blood Pressure Findings: Elevated blood pressure Blood Pressure Disposition: further management by hospitalist Discharge Plan Visit Data *Final* Discharge Date/Time: 02/01/19 04:24 Chief Complaint: Chest Pain Stated Complaint: CHEST PAIN ED Provider: Larry Benitez Discharge Problem: Substernal chest pain Patient Disposition: Admitted As Inpatient Discharge Instructions Interventions: ED Discharge Assessment Last Done: 02/01/19 04:24 The scribe's documentation has been prepared under my direction and personally reviewed by me in its entirety. I confirm that the note above accurately reflects all work, treatment, procedures, and medical decision making performed by me.
[2019-02-01] MEDS ORDERED: PANTOprazole 40 MG TAB PO SCH (09:00)
[2019-02-01] MEDS ORDERED: ASPIRIN 81 MG ECTAB PO SCH (09:00)
[2019-02-01] MEDS ORDERED: LISINOPRIL 10 MG TAB PO SCH (09:00)
[2019-02-01] MEDS ORDERED: ROSUVASTATIN CALCIUM 5 MG TAB PO SCH (09:00)
--- NOTE | 2019-02-01 09:45 | Cardiology Consultation ---
Date of Consultation February 01, 2019 Assessment & Plan (1) Substernal chest pain: Symptoms were suggestive of GI etiology, however the patient has already had a recent negative EGD. He has cardiac risk factors including his age, family history of coronary heart disease, and personal history of hypertension and dyslipidemia for which he is on statin therapy. Serial EKG and cardiac enzymes have been negative. Resting echocardiogram reveals no regional wall motion of normalities. Plan to proceed with exercise stress echocardiogram when staffing is available. (2) Hypertension: Blood pressure appears well controlled on lisinopril. (3) High cholesterol: Continue rosuvastatin History of Present Illness Attending Physician: Kerimt Ordaz MD History of Present Illness Tamara Larry is a 58 year old male seeen in cardiology consultation per the request of Dr Curtis for the evaluation of chest discomfort. The patient's primary care provider is Dr. Jayant Houston of [facility] internal medicine. The patient does not follow with [facility] cardiology on an outpatient basis. The patient is originally from [facility]. 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 He describes himself as being physically active with his job. His long-standing history of significant gastroesophageal reflux symptoms for which he is on omeprazole 40 mg by mouth daily and ranitidine 150 mg twice daily. He has undergone prior EGD in 2016 and most recently on 01/19/2019. Most recent endoscopy revealed pathology findings of mild chronic inactive gastritis, and was otherwise negative. He has an upcoming follow-up visit with GI as an outpatient on 03/24/2019. Patient describes frequent episodes of a sharp chest discomfort that comes on shortly after meals. This occurred twice yesterday, specifically after his evening meal, but then it also came on and woke him up from sleep. He therefore presented to the emergency room where EKG has been negative x2 thus far and he has had negative cardiac enzymes. Currently he feels that sensation as if he has something "stuck" in his upper throat. The symptoms do not come on with aerobic exertion. He states that with his work as a conductor, he moves his upper body vigorously does not have anginal sympto ms when he does this or with activity such as walking or climbing a flight of stairs. Other than GERD, his past medical history is remarkable for hypertension and dyslipidemia. He describes a family history of coronary heart disease with his father having from myocardial infarction age 73, and had 2 or 3 small heart attacks prior to that. Allergies Allergy/AdvReac Type Severity Reaction Status Date / Time No Known Allergies Allergy Verified 02/01/19 02:07 Home Medications Home Medications Medication Instructions Recorded Confirmed Type lisinopril 10 mg PO DAILY 02/01/19 02/01/19 History omeprazole 40 mg PO DAILY 02/01/19 02/01/19 History ranitidine HCl 150 mg PO DAILY 02/01/19 02/01/19 History rosuvastatin [Crestor] 5 mg PO DAILY 02/01/19 02/01/19 History Patient History Medical History High cholesterol Hypertension (Chronic) Surgical History History of hernia surgery History of ear surgery Family History Other Heart disease Social History Preferred Language: Croatian Communication Ability: Effective Bacteriology Research Assistant Required: No Beliefs That Will Affect Care: None Current Living Situation: Spouse Other Information That Helps Us Care for You: No Feels Safe at Home: Yes Safety Concerns: Feels Safe At This Time Smoking Status: Never smoker Hx Alcohol Use: Yes Hx Substance Use: No Review of Systems A 10 point review of systems is reviewed is negative with the exception of that above Physical Exam Vital Signs (Past 24 Hours): Last Vital Signs Temp 36.5 C 02/01/19 08:15 Pulse 63 02/01/19 08:15 Resp 17 02/01/19 08:15 BP 128/87 02/01/19 08:15 Pulse Ox 96 02/01/19 08:15 Physical Exam: General: no acute distress and stated age Eyes: conjunctiva are pink and non-injected, sclera clear Neck: normal jugular venous pulse, no hepatojugular reflux Chest: normal shape and normal respiratory effort Lungs: clear to auscultation and percussion Cardiac Exam: - regular heart sounds, no murmurs, rubs, or gallops, no jugular venous distention Abdomen: abdomen soft, non-tender, no abnormal masses and no hepatosplenomegaly Musculoskeletal: no gait disturbance, no weakness Extremities: no edema and no cyanosis Neuro:awake, coversant, follows commands, no focal motor deficits Psych: appropriate affect and insight. Results & Data Laboratory Results Cardiac Enzymes 02/01/19 02/01/19 Range/Units 02:25 05:51 AST 32 (15-37) U/L Troponin I < 0.015 < 0.015 (0-0.045) ng/ml Coagulation 02/01/19 Range/Units 02:25 PT 10.3 (9.0-12.0) Seconds CBC 02/01/19 02/01/19 Range/Units 02:25 05:51 WBC 7.35 7.67 (4.8-10.8) K/uL RBC 4.94 4.90 (4.7-6.1) M/uL Hgb 13.8 L 13.4 L (14.0-18.0) g/dL Hct 40.6 L 39.9 L (42-52) % Plt Count 148 152 (130-400) K/uL Neut # (Auto) 5.33 (1.4-6.5) K/uL Lymph # (Auto) 1.05 L (1.2-3.4) K/uL [place] # (Auto) 0.76 H (0.11-0.59) K/uL Eos # (Auto) 0.19 (0-0.5) K/uL Baso # (Auto) 0.01 (0-0.2) K/uL Comprehensive Metabolic Panel 02/01/19 02/01/19 Range/Units 02:25 05:51 Sodium 139 142 (136-145) mmol/L Potassium 3.8 4.0 (3.5-5.1) mmol/L Chloride 108 H 109 H (98-107) mmol/L Carbon Dioxide 28 30 (21-32) mmol/L BUN 25 H 24 H (7-18) mg/dl Creatinine 1.05 1.04 (0.6-1.4) mg/dl Glucose 102 H 99 (70-99) mg/dl Calcium 8.4 L 8.8 (8.5-10.1) mg/dl Direct Bilirubin < 0.1 (0-0.2) mg/dl AST 32 (15-37) U/L ALT 52 (12-78) U/L Alkaline Phosphatase 102 (45-117) U/L Total Protein 6.9 (6.4-8.2) gm/dl Albumin 3.2 L (3.4-5.0) gm/dl Intake and Output 01/31/19 02/01/19 02/01/19 22:59 06:59 14:59 Other: # Unmeasured Voids 1 Weight 67.5 kg Diagnostic Findings Emergency room 02/01/2019 at 1:16 AM revealed sinus bradycardia 58 bpm, normal EKG. Repeat this morning is unchanged as well. Resting echocardiogram performed this morning reveals normal left ventricular thickness, normal resting wall motion, normal LVEF in the range of 55 to 60%. Mild aortic valve regurgitation is noted.
--- NOTE | 2019-02-01 11:59 | Hospitalist Progress Note ---
Date of Service February 01, 2019 Assessment & Plan (1) Chest pain: ACS ruled out EKG no ischemia troponins negative x 2 Dr. Bonner from [facility] consulted s/p Exercise Stress Test: negative for inducible ischemia likely Atypical Chest Pain from GERD - recommend to increase Protonix and Ranitidine to BID ff up with Metallurgical Inspector as scheduled in March (2) High cholesterol: - continue Statin (3) Hypertension: - continue Lisinopril (4) GERD (gastroesophageal reflux disease): management as noted in #1 ff up with PCP in 3-5 days Scheduling Office closed today, will call tomorrow to request for an appointment Subjective ff up for chest pain seen resting in bed, comfortable states he feels much better overall no recurrence of chest pain while admitted denies other symptoms states he is ready and would like to be discharged today Physical Exam Vital Signs (Past 24 Hours): Last Vital Signs Temp 36.5 C 02/01/19 08:15 Pulse 63 02/01/19 08:15 Resp 17 02/01/19 08:15 BP 128/87 02/01/19 08:15 Pulse Ox 96 02/01/19 08:15 Physical Exam: General- oriented x 3, not in distress, speaks in sentences with no effort or accessory muscle use Head- atraumatic Eyes- PERRL, EOMI, anicteric ENT- oropharynx clear Neck- supple, no JVD, no adenopathy, no thyromegaly; carotids +2/2, no bruits appreciated Lungs- clear to auscultation bilaterally, no rales/wheezes Heart- normal rate, regular rhythm; no murmur, no gallop, no rub appreciated Abdomen- normal bowel sounds, nondistended, soft, nontender, no masses or hepatosplenomegaly Extremities- no pretibial edema, no calf tenderness; peripheral pulses intact Neuro- alert, oriented x 3; CN 2-12 grossly intact; motor 5/5 bilat erally;sensation 100% on all extremities; no other gross focal neurologic deficits Skin- warm & dry Results & Data Laboratory Results Laboratory Results - last 24 hr 02/01/19 02/01/19 02/01/19 02:25 02:25 02:25 WBC 7.35 RBC 4.94 Hgb 13.8 L Hct 40.6 L MCV 82.2 MCH 27.9 MCHC 34.0 RDW Std Deviation 40.4 RDW Coeff of Denise 13.3 Plt Count 148 MPV 10.2 Immature Gran % (Auto) 0.1 Neut % (Auto) 72.6 Lymph % (Auto) 14.3 [place] % (Auto) 10.3 Eos % (Auto) 2.6 Baso % (Auto) 0.1 Immature Gran # (Auto) 0.01 Neut # (Auto) 5.33 Lymph # (Auto) 1.05 L [place] # (Auto) 0.76 H Eos # (Auto) 0.19 Baso # (Auto) 0.01 PT 10.3 INR 1.0 Sodium 139 Potassium 3.8 Chloride 108 H Carbon Dioxide 28 Anion Gap 3.0 BUN 25 H Creatinine 1.05 Est Cr Clr Drug Dosing 65.0 Est GFR ( Amer) 90.9 Est GFR (Non-Af Amer) 78.4 BUN/Creatinine Ratio 23.4 H Glucose 102 H Calcium 8.4 L Total Bilirubin 0.3 Direct Bilirubin < 0.1 AST 32 ALT 52 Alkaline Phosphatase 102 Troponin I < 0.015 Total Protein 6.9 Albumin 3.2 L Lipase 108 02/01/19 02/01/19 05:51 05:51 WBC 7.67 RBC 4.90 Hgb 13.4 L Hct 39.9 L MCV 81.4 MCH 27.3 MCHC 33.6 RDW Std Deviation 39.9 RDW Coeff of Denise 13.3 Plt Count 152 MPV 10.5 H Immature Gran % (Auto) Neut % (Auto) Lymph % (Auto) [place] % (Auto) Eos % (Auto) Baso % (Auto) Immature Gran # (Auto) Neut # (Auto) Lymph # (Auto) [place] # (Auto) Eos # (Auto) Baso # (Auto) PT INR Sodium 142 Potassium 4.0 Chloride 109 H Carbon Dioxide 30 Anion Gap 3.0 BUN 24 H Creatinine 1.04 Est Cr Clr Drug Dosing 65.6 Est GFR ( Amer) 91.9 Est GFR (Non-Af Amer) 79.3 BUN/Creatinine Ratio 23.0 H Glucose 99 Calcium 8.8 Total Bilirubin Direct Bilirubin AST ALT Alkaline Phosphatase Troponin I < 0.015 Total Protein Albumin Lipase
--- NOTE | 2019-02-01 12:04 | Discharge Summary ---
Date of Service February 01, 2019 Admission HPI Per Admitting Provider 58-year-old male with past medical history of hypertension, hyperlipidemia, gastroesophageal reflux disease, who comes in complaining of substernal chest pain radiating to his back that started about 2 days ago. He had a recent EGD and has had a sore throat since then. Workup in the ER so far was negative we will place him under observation have him seen by cardiology and get a 2D echo. Patient will be observation status likely be her less than 2 midnights. He does have a family history of premature acute myocardial infarctions. Assessment and Plan Substernal chest pain Hypertension Hyperlipidemia GERD Placed under observation, serial troponins, trans-thoracic echo, continue outpatient medications, monitor daily labs, cardiac evaluation. Symptoms to me sound like reflux more so than cardiac ROS-No Headache, No Visual Changes, No Fever, No Chills, No Neck Pain or Stiffness, positive chest Pain radiating into his back, substernal in nature, 8/10 in severity, No Palpitations, No SOB, No BREWSTER, No Cough, No Sputum, No Wheezing, No Abdominal Pain, No Diarrhea, No Hematemesis, No Hemoptysis, No Unexpected Weight Loss, No Flank pain, No Melena, No Hematochezia, No Frequency, No Urgency, No Burning, No Hematuria, No Rashes, No Diaphoresis. Appetite is Normal Physical Exam Gen-AAO x 3, NAD, Afebrile, fit Head-NCAT, EOMI, PERRLA, Anicteric Sclera, No Posterior Pharyngeal Erythema Neck-Supple, No JVD, No Thyromegaly, No Masses, No LAD, No Bruits Lungs-Clear to Auscultation Bilaterally, No Rales, No Rhonchi, No Wheezing, No Crepitus Chest-No S4, +S1, +S2, No S3, No Murmurs, No Rubs, No Gallops, No Ectopy Abdomen-Soft, Bowel Sounds Present, Non Tender, Non Distended, No Hepatomegaly, No Splenomegaly, No Palpable Masses, No Rebound, No Rigidity, No Guarding Musculoskeletal-Full Range of Motion Bilaterally, No CVAT Extremities-No Cyanosis, No Clubbing, No Edema Nuero-Cranial Nerves II-XII grossly intact, Motor WNL, DTRs WNL, Strength WNL, No Focal Psych-Normal Mood PMH hypertension, hyperlipidemia, gastroesophageal reflux disease PSH hernia repair and ear surgery FH family history of premature coronary disease, mother of breast cancer, father of an acute VT, he has a son and daughter one has Crohn's disease the other is healthy SH [employer] employee, , no tobacco, drugs, alcohol. Meds reviewed and Reconciled Labs Reviewed Admission Exam Per Admitting Provider Vital Signs (Past 24 Hours): Last Vital Signs Temp 36.7 C 02/01/19 01:09 Pulse 60 02/01/19 03:31 Resp 15 02/01/19 03:31 BP 151/98 H 02/01/19 03:30 Pulse Ox 98 02/01/19 03:31 Principal Diagnosis ATYPICAL CHEST PAIN, LIKELY FROM GERD, ACS RULED OUT Discharge Exam Vital Signs (Past 24 Hours): Last Vital Signs Temp 36.5 C 02/01/19 08:15 Pulse 63 02/01/19 08:15 Resp 17 02/01/19 08:15 BP 128/87 02/01/19 08:15 Pulse Ox 96 02/01/19 08:15 Physical Exam: General- oriented x 3, not in distress, speaks in sentences with no effort or accessory muscle use Head- atraumatic Eyes- PERRL, EOMI, anicteric ENT- oropharynx clear Neck- supple, no JVD, no adenopathy, no thyromegaly; carotids +2/2, no bruits appreciated Lungs- clear to auscultation bilaterally, no rales/wheezes Heart- normal rate, regular rhythm; no murmur, no gallop, no rub appreciated Abdomen- normal bowel sounds, nondistended, soft, nontender, no masses or hepatosplenomegaly Extremities- no pretibial edema, no calf tenderness; peripheral pulses intact Neuro- alert, oriented x 3; CN 2-12 grossly intact; motor 5/5 bilat erally;sensation 100% on all extremities; no other gross focal neurologic deficits Skin- warm & dry Discharge Data Allergies Allergy/AdvReac Type Severity Reaction Status Date / Time No Known Allergies Allergy Verified 02/01/19 02:07 Consultations 02/01/19 03:27 ED Decision to Admit Stat 02/01/19 04:35 Consult Cardiology Routine Hospital Course (1) Chest pain: ACS ruled out EKG no ischemia troponins negative x 2 Dr. Bonner from Cardiology [facility] consulted s/p Exercise Stress Test: negative for inducible ischemia likely Atypical Chest Pain from GERD - recommend to increase Protonix and Ranitidine to BID ff up with Generation Manager as scheduled in March (2) High cholesterol: - continue Statin (3) Hypertension: - continue Lisinopril (4) GERD (gastroesophageal reflux disease): management as noted in #1 ff up with PCP in 3-5 days Scheduling Office closed today, will call tomorrow to request for an appointment Total Time Total Time Spent Total Time Spent (In Minutes): 30 MINUTES Discharge Plan Discharge Items Patient Disposition: Home - Self-Care Reason For Visit: CHEST PAIN (CP) Discharge Diagnosis: ATYPICAL CHEST PAIN Discharge Goals: Diagnostic testing and Therapeutic intervention Activity: Resume your previous activity Non-emergency contact: Primary Care Provider Call non-emergency contact if: you have any medication questions, your symptoms worsen, your pain is not controlled, your pain is worsening, your pain is unusual for you, your pain is concerning for you and you have a fever Follow-up/Referrals: Jayant Houston, [Primary Care Provider] - Diet: Heart Healthy Add Provider Instructions: PLEASE TAKE OMEPRAZOLE AND RANITINE AT LEAST 1 HOUR BEFORE BREAKFAST AND DINNER. AVOID CAFFEINATED AND CARBONATED BEVERAGES, ALCOHOL,ACIDIC OR SPICY FOODS. FOLLOW UP WITH DR. HOUSTON IN 3-5 DAYS. THE CLINIC WILL BE CALLING YOU FOR THE APPOINTMENT. FOLLOW UP WITH [employer] SCHEDULED. Prescriptions: Continued lisinopril 10 mg Tablet 10 mg PO DAILY RF: 0 rosuvastatin [Crestor] 5 mg Tablet 5 mg PO DAILY RF: 0 Changed ranitidine HCl 150 mg Tablet 150 mg PO BID Qty: 0 RF: 0 omeprazole 40 mg Capsule,Delayed Release(Dr/Ec) 40 mg PO BID Qty: 0 RF: 0 Stand-Alone Forms: [facility] Discharge Orders: Discharge Order (Routine); Ordered 02/01/19 Ordered By: Kermit Ordaz Admission Data Admit Date/Time: 02/01/19 03:52 Attending Provider: Kermit Ordaz Admit Provider: [employer] Joiner Primary Care Provider: Jayant Houston Other Providers: Audi Joiner ; Issac Bonner Service: Telemetry
[2019-02-01] MEDS ORDERED: HEPARIN SOD 5,000 UNIT/0.5 ML VIAL SQ SCH (14:00)
== END 2019-02-01 13:00 | disposition home or self-care (01) ==
LOC: 2E 01:06 → ED 01:06 → 2E 04:24